=== PATIENT | male | born 1935 | race Asian ===

== ENCOUNTER 2019-03-02 01:03 | Emergency (ER) | payer MEDICARE, OTHER ==
[~2019-03-02] VITALS: Ht 172.7 cm; Wt 63.5 kg
[~2019-03-02 01:03] MED LIST: ALLO300T2 PO; ASPI1CPM PO; ATEN25TA PO; BENA20TA9 PO; INDO-12 PO; LOSA50TA39 PO; NAPR-1009 PO; SIMV-49 PO
[2019-03-02 01:28] LABS: BASOPHILS # (AUTO) 0.1 /CMM (0.0-0.2); EOSINOPHILS % (AUTO) 2.6 % (0.0-6.0); HEMATOCRIT 40 % (39-51); HEMOGLOBIN 13.1 g/dL (13.5-17.5); LYMPHOCYTES # (AUTO) 1.5 /CMM (0.8-4.8); LYMPHOCYTES % (AUTO) 35.3 % (20.0-44.0); MEAN CORPUSCULAR HGB CONC 33 g/dl (31.0-36.0); MEAN CORPUSCULAR VOLUME 97 fL (80-96); MONOCYTES # (AUTO) 0.3 /CMM (0.1-1.30); MONOCYTES % (AUTO) 7.9 % (2.0-12.0); NEUTROPHILS # (AUTO) 2.3 /CMM (1.8-8.9); NEUTROPHILS % (AUTO) 52.2 % (43.0-81.0); PLATELET COUNT (AUTO) 181 /CMM (150-450); RED BLOOD CELL COUNT(AUTO) 4.06 MIL/uL (4.5-6.0); WHITE BLOOD COUNT (AUTO) 4.4 K/uL (4.3-11.0)
[2019-03-02] MEDS ORDERED: IV NS 0.9% 1,000 ML BAG IV ONE (01:30)
--- NOTE | 2019-03-02 01:34 | NUR ---
BIBRA 102 FOR SYNCOPAL EPISODE 45 MIN PROJECT MANAGEMENT IT SPECIALIST, IV STARTED, LABS DRAWN, FLUIDS RUNING. VSS TO ER BED 5
[2019-03-02 01:39] LABS: CALCIUM, SERUM 9.1 mg/dL (8.5-10.1); CARBON DIOXIDE 28 mmol/L (21-32); CHLORIDE 108 mmol/L (98-107); CREATININE 1.7 mg/dL (0.6-1.3); GLUCOSE 126 mg/dL (74-106); POTASSIUM 4.4 mmol/L (3.5-5.1); SODIUM SERUM 143 mmol/L (136-145); UREA NITROGEN, BLOOD 37 mg/dL (7-18)
[2019-03-02 01:42] LABS: ALANINE AMINOTRANSFERASE 32 U/L (12-78); ALBUMIN 3.7 g/dL (3.4-5.0); ALKALINE PHOSPHATASE 88 U/L (46-116); ASPARTATE AMINOTRANSFERASE 25 U/L (15-37); BILIRUBIN,DIRECT 0.2 mg/dL (0.0-0.2); BILIRUBIN,TOTAL 0.7 mg/dL (0.2-1.0); TOTAL PROTEIN, SERUM 6.9 g/dL (6.4-8.2)
--- NOTE | 2019-03-02 02:48 | NUR ---
[facility] [place]- [phone]
--- NOTE | 2019-03-02 04:09 | NUR ---
received a call from [facility] w/ following info: PT IS ACCEPTED AT [facility]. ACCEPTING MD: DR. PERAZA #: [id number] # FOR REPORT: [phone]
--- NOTE | 2019-03-02 04:11 | NUR ---
[facility] ETA 0700
--- NOTE | 2019-03-02 04:41 | NUR ---
CALLED IN REPORT TO TIMMY CHAN AT [facility]
[2019-03-02 06:58] VITALS: BP 141/89
--- NOTE | 2019-03-02 07:04 | NUR ---
report given to emt for trasnport
== END 2019-03-02 07:11 ==
LOC: ER 01:04
DX: R55 Syncope and collapse (principal); E86.0 Dehydration; N17.9 Acute kidney failure, unspecified; I10 Essential (primary) hypertension; E78.5 Hyperlipidemia, unspecified; M10.9 Gout, unspecified; Z79.899 Other long term (current) drug therapy; Z79.82 Long term (current) use of aspirin
CPT/HCPCS: 36415; 70450; 71045; 80048; 80076; 84484; 85025; 93005; 96360; 99285; J7030

== ENCOUNTER 2021-07-24 20:43 | Inpatient (IN) | payer MEDICARE, OTHER ==
[~2021-07-24] VITALS: Ht 165.1 cm; Wt 61.2 kg
--- NOTE | 2021-07-24 20:49 | NUR ---
BIB78 FROM HOME FOR ALTERED MENTAL STATUS. PATIENT WAS FOUND UNRESPONSIVE POSS SYNCOPAL EPISODE, BP AT SCENE 50/30. GIVEN 1L NS VIA RFA #18G S/L. PT BP AT TRIAGE 140/70. PT AWAKE AND RESPONDS TO NAME; NONVERBAL AT THIS TIME. TOLERATING R/A WELL WITH NO SOB. CONNECTED PT TO POX AND MONITOR. SAFETY MEASURES IN PLACE.
--- NOTE | 2021-07-24 20:49 | NUR ---
KAREN CARY BS: 111; DR. CINTHIA OMALLEY AWARE
--- NOTE | 2021-07-24 20:54 | NUR ---
WOOL BROKER AT PT'S' BEDSIDE. COVID ANTIGEN SWAB COLLECTED AND SENT TO LAB
--- NOTE | 2021-07-24 20:55 | NUR ---
DR. CINTHIA OMALLEY AT PT'S BEDSIDE WITH MAORI TELEPHONE INTERCEPTOR OPERATOR CALL ID [phone]
[2021-07-24] MEDS ORDERED: IV NS 0.9% 1,000 ML BAG IV ONE (21:00)
--- NOTE | 2021-07-24 21:00 | NUR ---
GERENTOLOGICAL PHYSIOTHERAPIST AT PT'S BEDSIDE
--- NOTE | 2021-07-24 21:03 | NUR ---
PT TAKEN TO CT VIA AILEEN
[2021-07-24 21:14] LABS: BASOPHILS % (AUTO) 0.2 % (0.0-2.0); EOSINOPHILS % (AUTO) 0.1 % (0.0-6.0); HEMATOCRIT 33 % (39-51); HEMOGLOBIN 10.7 g/dL (13.5-17.5); LYMPHOCYTES # (AUTO) 0.5 K/uL (0.8-4.8); LYMPHOCYTES % (AUTO) 7.6 % (20.0-44.0); MEAN CORPUSCULAR HGB CONC 32 g/dl (31.0-36.0); MEAN CORPUSCULAR VOLUME 96 fL (80-96); MONOCYTES # (AUTO) 0.3 K/uL (0.1-1.30); NEUTROPHILS # (AUTO) 5.6 K/uL (1.8-8.9); NEUTROPHILS % (AUTO) 88.1 % (43.0-81.0); PLATELET COUNT (AUTO) 131 K/uL (150-450); RED BLOOD CELL COUNT(AUTO) 3.45 MIL/uL (4.5-6.0); WHITE BLOOD COUNT (AUTO) 6.3 K/uL (4.3-11.0)
[2021-07-24 21:29] LABS: CALCIUM, SERUM 8.8 mg/dL (8.5-10.1); CARBON DIOXIDE 23 mmol/L (21-32); CHLORIDE 108 mmol/L (98-107); GLUCOSE 131 mg/dL (74-106); POTASSIUM 3.7 mmol/L (3.5-5.1); SODIUM SERUM 144 mmol/L (136-145); UREA NITROGEN, BLOOD 30 mg/dL (7-18)
--- NOTE | 2021-07-24 21:38 | NUR ---
COVID ANTIGEN AND URINE COLLECTED AND SENT TO LAB
--- NOTE | 2021-07-24 21:38 | NUR ---
PT PROVIDED WITH WARM BLANKET FOR COMFORT.
--- NOTE | 2021-07-24 21:39 | NUR ---
PT DESATTING ON R/A 85%. PUT ON SIMPLE MASK 6LPM SATTING AT 97%
--- NOTE | 2021-07-24 21:39 | NUR ---
MRS SWAB COLLECTED AND SENT TO LAB. PATIENT'S BELONGINGS LIST DONE.
[2021-07-24 21:41] LABS: THYROID STIMULATING HORMONE 8.151 uIU/mL (0.358-3.74)
[2021-07-24 21:42] LABS: ACETAMINOPHEN 2 ug/ml (10-30); ALANINE AMINOTRANSFERASE 21 U/L (12-78); ALBUMIN 2.5 g/dL (3.4-5.0); ALKALINE PHOSPHATASE 104 U/L (46-116); ASPARTATE AMINOTRANSFERASE 19 U/L (15-37); BILIRUBIN,DIRECT 0.3 mg/dL (0.0-0.2); BILIRUBIN,TOTAL 1.2 mg/dL (0.2-1.0); TOTAL PROTEIN, SERUM 5.1 g/dL (6.4-8.2)
[2021-07-24] MEDS ORDERED: MORPHINE SULFATE INJ 2 MG/ML DISP.SYRIN IV PRN (22:00)
[2021-07-24] MEDS ORDERED: ONDANSETRON HCL/PF 4 MG/2 ML VIAL IVP PRN (22:00)
[2021-07-24] MEDS ORDERED: MAG HYDROX/AL HYDROX/SIMETH 30 ML UDC PO PRN (22:00)
[2021-07-24] MEDS ORDERED: IV NS 0.9% 1,000 ML IV SCH (22:00)
[2021-07-24] MEDS ORDERED: ACETAMINOPHEN 325 MG TABLET PO PRN (22:00)
[2021-07-24] MEDS ORDERED: MAGNESIUM HYDROXIDE 30 ML UDC PO PRN (22:00)
[2021-07-24] MEDS ORDERED: Z GUARD REMEDY 4 OZ OINT TP PRN (22:00)
[2021-07-24] MEDS ORDERED: ASPIRIN 300 MG/SUPP.RECT RC ONE (22:26)
[2021-07-24] MEDS ORDERED: DOXYCYCLINE 100 MG VIAL ONE (22:26)
[2021-07-24] MEDS ORDERED: PIPERACILLIN /TAZOBACTAM 3.375 G VIAL IV ONE (22:26)
[2021-07-24] MEDS ORDERED: PIPERACILLIN /TAZOBACTAM 3.375 G in IV D5W 50 ML IV ONE (22:30)
[2021-07-24] MEDS ORDERED: DOXYCYCLINE 100 MG in IV D5W 100 ML IV SCH (22:30)
[2021-07-24] MEDS ORDERED: IV LR 1000 ML 1,000 ML IV ONE (22:30)
[2021-07-24] MEDS ORDERED: NOREPINEPHRINE 4 MG/4 ML AMPUL IV ONE (22:39)
--- NOTE | 2021-07-24 22:45 | NUR ---
ECHOCARDIOGRAM TECH AT PT'S BEDSIDE
--- NOTE | 2021-07-24 22:51 | NUR ---
SAWMILL WORKER AT PT'S BEDSIDE
--- NOTE | 2021-07-24 22:54 | NUR ---
2247: BP 45/[address] VICENTE ORDERS TO INITIATE LEVOPHED TO KEEP MAP > 65. 2250: TITRATED LEVOPHED NEEDED. WILL REASSESS BP. 2254: BP RECHECK 75/56
[2021-07-24 22:58] LABS: BILIRUBIN,URINE NEGATIVE (NEGATIVE); COLOR,URINE YELLOW (YELLOW); LEUKOCYTE ESTERASE ,URINE NEGATIVE (NEGATIVE); NITRITE, URINE NEGATIVE (NEGATIVE); PROTEIN,URINE 100 mg/dl (NEGATIVE); UGLUCOSE NEGATIVE (NEGATIVE); UROBILINOGEN,URINE 0.2 EU/dL (0.2)
[2021-07-24] MEDS ORDERED: NOREPINEPHRINE 8 MG in IV NS 0.9% 242 ML IV PRN (23:00)
[2021-07-24] MEDS ORDERED: HEPARIN SODIUM, PORCINE 5000 UNITS/1 ML VIAL SQ SCH (23:02)
[2021-07-24] MEDS ORDERED: ASPIRIN 600 MG/SUPP.RECT RC ONE (23:03)
[2021-07-24] MEDS ORDERED: ALBUMIN 25% 25 GM in PREMIX 1 EA IV SCH (23:30)
--- NOTE | 2021-07-24 23:33 | NUR ---
DANIEL VALDEZ PT NOTED WITH NO RESPIRATIONS 2312 PULSE CHECK, PEA NOTED, CPR INITIATED, DANIEL VALDEZ CALLED, DR. VICENTE AT PT'S BEDSIDE GIVING VERBAL ORDERS. 2314: EPI .1MG ADMINISTERD 2316: PULSE CHECK EVERY 2 MINUTES PEA NOTED, CPR RESUMED. 2327: EPI .1MG ADMINISTERD 2320: EPI .1MG ADMINISTERD 2321: PT INTUBATED ETT 7.5 , 24 CM AT THE LIP, CPR RESUMED 2322: EPI .1MG ADMINISTERD 2324 BICARB IVP ADMINISTERED 2325 PULSE CHECK & PULSE FELT ROSC ACHIEVED 2325 BP 144/95 HR 82 PT PLACED ON FENT SETTINGS FIO2 100%, VT 500, RR 18 Addendum: 07/25/21 at 0034 by CÉSAR DANIEL VALDEZ PT NOTED WITH NO RESPIRATIONS 2312 PULSE CHECK, PEA NOTED, CPR INITIATED, DANIEL VALDEZ CALLED, DR. VICENTE AT PT'S BEDSIDE GIVING VERBAL ORDERS. 2314: EPI 1MG ADMINISTERD 2316: PULSE CHECK EVERY 2 MINUTES PEA NOTED, CPR RESUMED. 2327: EPI 1MG ADMINISTERD 2320: EPI 1MG ADMINISTERD 2321: PT INTUBATED ETT 7.5 , 24 CM AT THE LIP, CPR RESUMED 2322: EPI 1MG ADMINISTERD 2324 BICARB IVP ADMINISTERED 2325 PULSE CHECK & PULSE FELT ROSC ACHIEVED 2325 BP 144/95 HR 82 PT PLACED ON FENT SETTINGS FIO2 100%, VT 500, RR 18 Addendum: 07/25/21 at 0125 by CÉSAR DANIEL VALDEZ PT NOTED WITH NO RESPIRATIONS 2312 PULSE CHECK, PEA NOTED, CPR INITIATED, DANIEL VALDEZ CALLED, DR. VICENTE AT PT'S BEDSIDE GIVING VERBAL ORDERS. 2314: EPI 1MG ADMINISTERD 2316: PULSE CHECK EVERY 2 MINUTES PEA NOTED, CPR RESUMED. 2327: EPI 1MG ADMINISTERD 2320: EPI 1MG ADMINISTERD 2321: PT INTUBATED ETT 7.5 , 24 CM AT THE LIP, CPR RESUMED 2322: EPI 1MG ADMINISTERD 2324: BICARB IVP ADMINISTERED 2325: EPI 1MG ADMINISTERD PULSE CHECK & PULSE FELT ROSC ACHIEVED 2325 BP 144/95 HR 82 PT PLACED ON FENT SETTINGS FIO2 100%, VT 500, RR 18
--- NOTE | 2021-07-24 23:39 | NUR ---
DR. CINTHIA OMALLEY AT PT'S BEDSIDE FOR R FEMORAL MIDLINE.
--- NOTE | 2021-07-24 23:43 | NUR ---
DR. VICENTE VERBAL ORDERS FOR IVF LR 1000ML CARRIED OUT
[2021-07-24] MEDS ORDERED: EPINEPHRINE (1:1000) 1 MG/ML AMPUL ONE (23:46)
--- NOTE | 2021-07-24 23:55 | NUR ---
INSERTED F/C 16FR WITH URINE RETURN
[2021-07-25] VITALS (10 sets, daily range): BP systolic 62–182; BP diastolic 15–65
[2021-07-25] MEDS ORDERED: CEFEPIME 1 GM in IV D5W 50 ML IV ONE ×2
[2021-07-25] MEDS ORDERED: PROPOFOL 100 ML ONE (00:04)
--- NOTE | 2021-07-25 00:15 | NUR ---
NGT INSERTED TO R NARE 16FR; 65 CM; PLACEMENT VERIFIED VIA AUSCULTATION AND ASPIRATION. AWAITING CXR VERIFICATION
--- NOTE | 2021-07-25 00:23 | NUR ---
WEB CONTENT EXECUTIVE AT PT'S BEDSIDE
[2021-07-25] MEDS ORDERED: NOREPINEPHRINE 4 MG/4 ML AMPUL IV ONE ×2 (00:29→02:35)
[2021-07-25] MEDS ORDERED: FUROSEMIDE 40 MG/4 ML VIAL IV SCH (00:30)
[2021-07-25] MEDS ORDERED: CEFEPIME 1 GM VIAL ONE (00:39)
[2021-07-25] MEDS ORDERED: VASOPRESSIN INJ 20 UNIT/ML VIAL ONE (00:51)
[2021-07-25] MEDS ORDERED: VASOPRESSIN INJ 40 UNIT in IV NS 0.9% 38 ML IV PRN (01:00)
[2021-07-25] MEDS: NOREPINEPHRINE 32 MG in IV NS 0.9% 218 ML IV PRN ×2 (01:00→02:57)
--- NOTE | 2021-07-25 01:01 | NUR ---
REPORT GIVEN TO UZAIR STOCKROOM ASSOCIATE FOR SHEILA
[2021-07-25] MEDS: EPINEPHRINE (1:1000) 5 MG in IV NS 0.9% 245 ML IV PRN ×3 (01:08→02:29)
[2021-07-25] MEDS ORDERED: ALBUMIN 25% 100 ML IV ONE (01:20)
--- NOTE | 2021-07-25 01:24 | NUR ---
RT AT PT'S BEDSIDE FOR ABG
[2021-07-25] MEDS ORDERED: IV NS 0.9% 250 ML IV PRN (01:30)
[2021-07-25] MEDS ORDERED: NOREPINEPHRINE 8 MG in IV NS 0.9% 242 ML IV PRN (01:30)
[2021-07-25 01:31] LABS: ABG BASE EXCESS -19.7 mmol/L; ABG PH 7.119 (7.350-7.450); ABG PO2 434.9 mmHg (75.0-100.0); COHb 0.3 % (0.5-1.5); MetHb 0.6 % (0.0-1.5); O2Hb 98.5 % (94.0-97.0); PEEP,BG 0 cm H2O; SITE, ABG Left Femoral; VENT MODE, BG AC 18 500 100% +0; VT, ABG 500 mL
--- NOTE | 2021-07-25 01:45 | NUR ---
ICU/QUARRYING MANAGER PT CAME FROM ER, INTUBATED 7.5/ A/C-18,500,100%, NO PEEP, UNABLE TO GET A GOOD PULSE READING THE PT IS COLD. F/C WITH NO URINE OUTPUT. RIGHT GROINING TLC. PT CAME UP WITH PRESSORS OF MAXED EPI 1.2MCG, VASO 0.04 UNITS/MINUTE, LEVO 1MCG, SEE FLOWSHEET.
--- NOTE | 2021-07-25 01:47 | NUR ---
PT TRANSFERRED TO ICU WITH RT VIA ACLS PROTOCOL. CONTINUED IV DRIPS: LEVOPHED @ 1MCG/KG/MIN EPINEPHRINE 1MCG/KG/MIN VASOPRESSEN 0.04 U/MIN PT MAINTAINED MAP >65
[2021-07-25] MEDS ORDERED: SODIUM BICARBONATE SYR 50 MEQ/50 ML DISP.SYRIN IV STA (01:57)
[2021-07-25] MEDS ORDERED: Sodium Bicarbonate 150 MEQ in IV D5/0.45 NACL 1,000 ML IV ONE (02:00)
--- NOTE | 2021-07-25 02:10 | NUR ---
ICU/PIANO REGULATOR 0200-BICARB WAS LOW, MD CALLED TO GET ODER FOR THIS. ORDERS WAS RECIEVED TO START BICARB DRIP. CHARGE NURSE AWARE OF THIS ORDER. 0220-ALBUMIN WAS STARTED WELL.
[2021-07-25] MEDS ORDERED: SODIUM BICARBONATE SYR 50 MEQ/50 ML DISP.SYRIN ONE ×3 (02:15→02:19)
[2021-07-25] MEDS ORDERED: EPINEPHRINE (1:1000) 1 MG/ML AMPUL ONE (02:23)
[2021-07-25 02:27] LABS: BASOPHILS % (AUTO) 0.4 % (0.0-2.0); EOSINOPHILS % (AUTO) 0.2 % (0.0-6.0); LYMPHOCYTES # (AUTO) 1.3 K/uL (0.8-4.8); LYMPHOCYTES % (AUTO) 24.8 % (20.0-44.0); MEAN CORPUSCULAR HGB CONC 30 g/dl (31.0-36.0); MEAN CORPUSCULAR VOLUME 105 fL (80-96); MONOCYTES # (AUTO) 0.2 K/uL (0.1-1.30); MONOCYTES % (AUTO) 3.2 % (2.0-12.0); NEUTROPHILS # (AUTO) 3.7 K/uL (1.8-8.9); NEUTROPHILS % (AUTO) 71.4 % (43.0-81.0); WHITE BLOOD COUNT (AUTO) 5.2 K/uL (4.3-11.0)
[2021-07-25] MEDS ORDERED: Sodium Bicarbonate 150 MEQ in IV D5W 1,000 ML IV ONE (02:49)
[2021-07-25] MEDS ORDERED: PHENYLEPHRINE 100 MG in IV NS 0.9% 240 ML IV PRN (03:00)
--- NOTE | 2021-07-25 03:00 | NUR ---
ICU/GRAIN COMBINER CALLED FAMILY TO ASK ABOUT CODE STATUS, FAMILY WAS UNAWARE THAT PT HAD ALREADY CODED IN ER. ASKED FAMILY WHAT WISHES ARE FOR ADVANCE DIRECTIVES, SON SAID FULL CODE. INSTRUCTED FAMILY TO COME TO HOSPITAL PT'S VITAL SIGNS ARE NOT GOOD AT THIS TIME.
[2021-07-25] MEDS ORDERED: DEXTROSE 50%-WATER 50 ML DISP.SYRIN ONE (03:24)
[2021-07-25] MEDS ORDERED: EPINEPHRINE (1:1000) 1 MG/ML AMPUL SUBCUT ONE (03:38)
[2021-07-25] MEDS ORDERED: EPINEPHRINE (1:10,000) SYRINGE 1 MG/10 ML DISP.SYRIN IVP ONE ×3 (03:38→03:39)
[2021-07-25] MEDS ORDERED: DEXTROSE 50%-WATER 50 ML DISP.SYRIN IV ONE (03:39)
[2021-07-25 04:12] LABS: ALANINE AMINOTRANSFERASE 68 U/L (12-78); ALBUMIN 1.5 g/dL (3.4-5.0); ALKALINE PHOSPHATASE 71 U/L (46-116); ASPARTATE AMINOTRANSFERASE 85 U/L (15-37); BILIRUBIN,TOTAL 0.9 mg/dL (0.2-1.0); CALCIUM, SERUM 7.6 mg/dL (8.5-10.1); CARBON DIOXIDE 12 mmol/L (21-32); CHLORIDE 113 mmol/L (98-107); GLUCOSE 91 mg/dL (74-106); POTASSIUM 4.2 mmol/L (3.5-5.1); SODIUM SERUM 147 mmol/L (136-145); TOTAL PROTEIN, SERUM 3.2 g/dL (6.4-8.2); UREA NITROGEN, BLOOD 29 mg/dL (7-18)
[2021-07-25 04:17] LABS: RED BLOOD CELL COUNT(AUTO) 1.91 MIL/uL (4.5-6.0)
[2021-07-25 04:18] LABS: HEMATOCRIT 20 % (39-51); PLATELET COUNT (AUTO) 14 K/uL (150-450)
--- NOTE | 2021-07-25 04:30 | NUR ---
ICU/TUG BOAT CAPTAIN 0320-FIRST CODE BLUE IN ICU, SECOND CODE BLUE DURING THIS HOSPITAL ADMISSION. 0335-FAMILY AT BEDSIDE 0336-ER MD TALKING TO FAMILY, AGREE TO LET FATHER GO. 033-PT 040-[facility] CALLED, DECLINE PT. RETAIL EVENT COORDINATOR DECLINE TO TAKE THIS PT 0420-FAMILY, SON SIGNED PAPERWORK.
--- NOTE | 2021-07-25 05:23 | NUR ---
ICU/CRM ANALYST BODY TAKEN [place] THE [facility] [place]
[2021-07-25] MEDS ORDERED: AGGRENOX(ASA/DIPYRIDAMOLE) 1 CAP CPMP.12HR PO SCH (09:00)
[2021-07-25] MEDS ORDERED: DOCUSATE SODIUM 100 MG CAPSULE PO SCH (09:00)
[2021-07-25] MEDS ORDERED: LOSARTAN POTASSIUM 50 MG TABLET PO SCH (09:00)
[2021-07-25] MEDS ORDERED: POLYETHYLENE GLYCOL 3350 17 GM POWD.PACK PO SCH (09:00)
[2021-07-25] MEDS ORDERED: ATENOLOL 25 MG TABLET PO SCH (09:00)
[2021-07-25] MEDS ORDERED: VANCOMYCIN 1 GM in IV D5W 250 ML IV SCH (09:00)
[2021-07-25] MEDS ORDERED: ALLOPURINOL 100 MG TABLET PO SCH (09:00)
[2021-07-25] MEDS ORDERED: SIMVASTATIN 40 MG TABLET PO SCH (18:00)
== END 2021-07-25 03:39 | DRG 871 ==
LOC: ER 20:45 → ICU 22:47
PROVIDERS: ADMIT Internal Medicine; ATTEND Internal Medicine
PROC: 5A1935Z Respiratory Ventilation, Less than 24 Consecutive Hours (ICD-10-PCS; principal; 2021-07-24)
PROC: 06HM33Z Insertion of Infusion Device into Right Femoral Vein, Percutaneous Approach (ICD-10-PCS; 2021-07-24)
PROC: B54BZZA Ultrasonography of Right Lower Extremity Veins, Guidance (ICD-10-PCS; 2021-07-24)
PROC: 0BH18EZ Insertion of Endotracheal Airway into Trachea, Via Natural or Artificial Opening Endoscopic (ICD-10-PCS; 2021-07-24)
PROC: 5A12012 Performance of Cardiac Output, Single, Manual (ICD-10-PCS; 2021-07-25)
PROC: 5A2204Z Restoration of Cardiac Rhythm, Single (ICD-10-PCS; 2021-07-25)
DX: A41.9 Sepsis, unspecified organism (principal); G93.41 Metabolic encephalopathy; J96.01 Acute respiratory failure with hypoxia; R65.21 Severe sepsis with septic shock; J18.9 Pneumonia, unspecified organism; I21.A1 Myocardial infarction type 2; E44.0 Moderate protein-calorie malnutrition; E87.2 Acidosis; J90 Pleural effusion, not elsewhere classified; N17.9 Acute kidney failure, unspecified; I50.40 Unspecified combined systolic (congestive) and diastolic (congestive) heart failure; D64.9 Anemia, unspecified; D69.6 Thrombocytopenia, unspecified; E78.5 Hyperlipidemia, unspecified; E88.09 Other disorders of plasma-protein metabolism, not elsewhere classified; I11.0 Hypertensive heart disease with heart failure; I25.10 Atherosclerotic heart disease of native coronary artery without angina pectoris; Z95.0 Presence of cardiac pacemaker; M10.9 Gout, unspecified; Z68.22 Body mass index [BMI] 22.0-22.9, adult; I46.9 Cardiac arrest, cause unspecified; I69.30 Unspecified sequelae of cerebral infarction
CPT/HCPCS: 36415; 36600; 70450-TC; 71045-TC; 80048-TC; 80053-TC; 80076-TC; 82803-TC; 82962-TC; 83605-TC; 83880; 84439-TC; 84443-TC; 84481; 84484-TC; 85025-TC; 85730-TC; 87040-TC; 87081-TC; 87086-TC; 92950-TC; 93307-TC; 94002-TC; 99082-TC; A4216; G0378; G0480; J0171; J0692; J1644; J2543; J3370; J3490; J7050; J7060; J7070; J7120; P9047